=== PATIENT | male | born 1995 | race Caucasian/White ===

== ENCOUNTER 2024-03-14 14:26 | Emergency (ER) | payer MEDICAID ==
[~2024-03-14] VITALS: Ht 188 cm; Wt 84.0 kg
[2024-03-14 15:23] LABS: INFLUENZA B NAA NEGATIVE (NEGATIVE); RESPIRATORY SYNCYTIAL VIR NAA NEGATIVE (NEGATIVE)
[2024-03-14] MEDS ORDERED: MIRALAX17 GM PO ×2 (15:34→16:52)
[2024-03-14] MEDS ORDERED: DULCOLAX STOOL100 MG PO (15:34)
[2024-03-14 17:03] VITALS: BP 117/83
== END 2024-03-14 17:03 | disposition home or self-care (01) ==
LOC: ED 14:26
PROVIDERS: Emergency Medicine
DX: J06.9 Acute upper respiratory infection, unspecified (principal); K59.00 Constipation, unspecified; Z11.52 Encounter for screening for COVID-19
CPT/HCPCS: 71045; 74018; 87502; U0002